=== PATIENT | male | born 1995 | race Caucasian/White ===

== ENCOUNTER 2019-08-14 16:24 | Emergency (ER) | payer OTHER ==
[~2019-08-14] VITALS: Ht 170.2 cm; Wt 59.1 kg
[2019-08-14 16:28] VITALS: Ht 170.2 cm; Wt 59.1 kg
[2019-08-14 17:40] LABS: microscopic required? NO
[2019-08-14 17:53] LABS: CALCIUM 8.3 mg/dL (8.5-10.1); CARBON DIOXIDE 25.8 mmol/L (21-32); CHLORIDE SERUM 98 mmol/L (98-107); CREATININE SERUM 0.9 mg/dL (0.7-1.3); GFR1 > 60 mL/min; GLUCOSE SERUM 141 mg/dL (74-106); POTASSIUM SERUM 3.6 mmol/L (3.5-5.1); SODIUM SERUM 135 mmol/L (136-145)
[2019-08-14 18:02] LABS: BASOPHIL % 0.3 % (0-2); PLATELET COUNT 251 x10^3mcL (130-400); RED CELL DISTRIBUTION WIDTH 12.3 % (11.5-14.5)
[2019-08-14 18:04] LABS: urine erythrocyte NEGATIVE (NEGATIVE)
[2019-08-14 18:05] LABS: ALBUMIN 4.3 g/dL (3.4-5.0); ALKALINE PHOSPHATASE 48 U/L (46-116); ALT/SGPT 34 U/L (16-63); AST/SGOT 25 U/L (15-37); BILIRUBIN TOTAL 0.6 mg/dL (0.20-1.00); CHOLESTEROL 182 mg/dL (<200); HDL CHOLESTEROL 63 mg/dL (40-60); LIPASE 110 IU/L (73-393); MAGNESIUM 1.8 mg/dL (1.8-2.4); T4(THYROXINE) 7.5 ug/dL (4.7-13.3); TOTAL PROTEIN, SERUM 7.5 g/dL (6.4-8.2)
[2019-08-14 18:13] LABS: AMPHETAMINE QUAL UR NONE DETECTED (See below)
[2019-08-14 20:54] VITALS: BP 126/79
== END 2019-08-14 20:54 | disposition home or self-care (01) ==
LOC: ED 16:24
PROVIDERS: Emergency Medicine
DX: F10.239 Alcohol dependence with withdrawal, unspecified (principal); R00.2 Palpitations
CPT/HCPCS: J2060; J2405; J3490; J7030; Q0092

== ENCOUNTER 2019-09-22 14:56 | Emergency (ER) | payer OTHER ==
[~2019-09-22] VITALS: Ht 170.2 cm; Wt 61.7 kg
[2019-09-22 15:33] VITALS: BP 138/91
== END 2019-09-22 16:01 | disposition home or self-care (01) ==
LOC: ED 14:56
DX: R00.2 Palpitations (principal); R07.89 Other chest pain

== ENCOUNTER 2019-12-09 04:53 | Emergency (ER) | payer OTHER ==
[~2019-12-09] VITALS: Ht 170.2 cm; Wt 63.0 kg
[2019-12-09 04:56] VITALS: Ht 170.2 cm; Wt 63.0 kg
[2019-12-09 07:00] LABS: BASOPHIL % 0.6 % (0-2); PLATELET COUNT 300 x10^3mcL (130-400); RED CELL DISTRIBUTION WIDTH 12.4 % (11.5-14.5)
[2019-12-09 07:35] LABS: ALKALINE PHOSPHATASE 45 U/L (46-116); ALT/SGPT 57 U/L (16-63); AST/SGOT 34 U/L (15-37); BILIRUBIN TOTAL 0.3 mg/dL (0.20-1.00); CALCIUM 8.9 mg/dL (8.5-10.1); CARBON DIOXIDE 26.3 mmol/L (21-32); CHLORIDE SERUM 103 mmol/L (98-107); CHOLESTEROL 156 mg/dL (<200); CREATININE SERUM 0.9 mg/dL (0.7-1.3); GFR1 > 60 mL/min; GLUCOSE SERUM 98 mg/dL (74-106); LIPASE 223 IU/L (73-393); MAGNESIUM 2.1 mg/dL (1.8-2.4); POTASSIUM SERUM 4.3 mmol/L (3.5-5.1); SODIUM SERUM 140 mmol/L (136-145); T4(THYROXINE) 6.5 ug/dL (4.7-13.3); TOTAL PROTEIN, SERUM 7.6 g/dL (6.4-8.2)
[2019-12-09 08:02] LABS: microscopic required? NO
[2019-12-09 08:12] LABS: UA SPECIFIC GRAVITY <=1.005 (1.005-1.035); urine erythrocyte NEGATIVE (NEGATIVE)
[2019-12-09 09:06] LABS: AMPHETAMINE QUAL UR NONE DETECTED (See below)
[2019-12-09 10:03] VITALS: BP 118/76
== END 2019-12-09 10:03 | disposition home or self-care (01) ==
LOC: ED 04:53
PROVIDERS: Emergency Medicine
DX: R55 Syncope and collapse (principal); R00.2 Palpitations
CPT/HCPCS: 83880; 85378; G0480; J7030; Q0092

== ENCOUNTER 2020-11-05 23:55 | Emergency (ER) | payer OTHER ==
[~2020-11-05] VITALS: Ht 165.1 cm; Wt 56.2 kg
[2020-11-06 00:03] VITALS: Ht 165.1 cm; Wt 56.2 kg
[2020-11-06 01:57] VITALS: BP 127/71
== END 2020-11-06 01:57 | disposition home or self-care (01) ==
LOC: ED 23:55
DX: F41.9 Anxiety disorder, unspecified (principal)